=== PATIENT | male | born 1985 | race Two or more races ===

== ENCOUNTER 2023-01-22 08:45 | Emergency (ER) | payer OTHER ==
[~2023-01-22] VITALS: Ht 167.6 cm; Wt 114.3 kg
[2023-01-22] MEDS ORDERED: KETOROLAC TROMETH 30 MG/ML 1ML VIAL IM ONE (12:30)
[2023-01-22 12:31] VITALS: BP 125/79
[2023-01-22] MEDS ORDERED: IBUP600T28 PO (13:51)
[2023-01-22] MEDS ORDERED: CYCL-839 PO (13:51)
== END 2023-01-22 14:10 | disposition home or self-care (01) ==
LOC: ER 08:45
DX: S83.91XA Sprain of unspecified site of right knee, initial encounter (principal); F32.9 Major depressive disorder, single episode, unspecified; F43.10 Post-traumatic stress disorder, unspecified; X50.9XXA Other and unspecified overexertion or strenuous movements or postures, initial encounter; Y93.89 Activity, other specified; Y92.89 Other specified places as the place of occurrence of the external cause; Y99.8 Other external cause status
CPT/HCPCS: 73562; 96372; 99283; J1885